=== PATIENT | female | born 1935 | race Caucasian/White ===

== ENCOUNTER 2018-12-16 08:35 | Inpatient (IN) | payer MEDICARE ==
[~2018-12-16] VITALS: Ht 165.1 cm; Wt 94.0 kg
[2018-12-16] VITALS (13 sets, daily range): BP systolic 119–152; BP diastolic 52–80; PULSE 52–77; TEMP 97.2–98.4
[2018-12-16 09:39] LABS: HEMATOCRIT 39.1 % (37.0-47.0); HEMOGLOBIN 13.2 g/dl (12.5-16.0); MEAN CELL VOLUME 87 fl (80.0-100.0); MEAN CORPUSCULAR HEMOGLOBIN 30 pg (27.0-31.0); MEAN CORPUSCULAR HGB CONC 34 g/dl (33.0-37.0); MEAN PLATELET VOLUME 10.5 fl (7.4-10.4); PLATELET COUNT 273 K/mm3 (130-400); RED BLOOD COUNT 4.48 M/mm3 (4.10-5.30); REDCELL DISTRIBUTION WIDTH-CV 13.9 % (11.5-14.5)
[2018-12-16 09:47] LABS: INR 1.1 (0.8-3.0); PROTHROMBIN TIME 12.9 SECONDS (9.7-12.8)
[2018-12-16 09:49] LABS: CALCIUM 10.1 mg/dL (8.4-10.2); CREATININE, serum 0.73 (0.52-1.25)
[2018-12-16] MEDS ORDERED: NORVASC 10MG10 MG PO (10:04)
[2018-12-16] MEDS ORDERED: PRINIVIL40 MG PO (10:05)
[2018-12-16] MEDS ORDERED: LIPITOR 10MG10 MG PO (10:05)
[2018-12-16] MEDS ORDERED: COREG12.5 MG PO (10:06)
[2018-12-16] MEDS ORDERED: K-TAB10 PO (10:07)
[2018-12-16] MEDS ORDERED: LASIX 20MG TABL20 MG PO (10:07)
[2018-12-16] MEDS ORDERED: ASPIRIN E.C. 8181 MG PO (10:08)
[2018-12-16] MEDS ORDERED: CALCIUM 600MG+D1 TAB PO (10:09)
[2018-12-16] MEDS ORDERED: CALTRATE 600 +1 TAB PO (10:10)
[2018-12-16] MEDS ORDERED: VITAMIN C500 MG PO (10:10)
[2018-12-16] MEDS ORDERED: STOOL SOFTENER100 M2 PO (10:11)
[2018-12-16] MEDS ORDERED: ELIQUIS 5MG PO (10:12)
--- NOTE | 2018-12-16 11:03 | NUR ---
ALL MEDICATIONS GIVEN VORB BY MD. SEE MERGE FOR ALL MEDICATION ADMIN TIMES. SEE MERGE FOR ALL RASS ASSESSMENTS DURING AND POST PROCEDURE.
--- NOTE | 2018-12-16 12:05 | NUR ---
Patient arrived to room at this time accompanied by rn cardiac cath nurse. Report received. Cath site assessed and dressing is clean, dry and intact. Patient offers no complaints of pain but states she is very thirst. Patient was given ice chips and satistfied with this. Lungs are clear to auscultation. Heart is regular. No edema is noted. Radial and pedal pulses are readily palpable. Abdomen is soft and non-tender, bowel sounds are active in all four quadrants. 1/2 NS is infusing through gravity tubing at 100 ml/hr to a 20g IV to the left wrist. IV site is without redness or drainage, dressing is intact. No needs identified. Call light is within reach.
[2018-12-16 12:44] LABS: MAGNESIUM 1.9 mg/dL (1.6-2.3)
[2018-12-16 13:14] LABS: THYROID STIMULATING HORMONE 1.63 uIU/mL (0.465-4.680)
--- NOTE | 2018-12-16 15:24 | NUR ---
Patient declined to take 1200 scheduled medications, stated she was afraid to take anything until she could sit up as she feels she may choke. Called Dr. Willis regarding the sotalol and he instructed to have patient take the medication at 1600 and midnight then resume regular schedule tomorrow.
--- NOTE | 2018-12-16 18:29 | NUR ---
Patient is sitting up in recliner stating she is releived to be out of bed. Did eat supper and then went on a walk with her daughter. Denies having any pain. Cath site remains clean dry and intact. Call light is within reach.
--- NOTE | 2018-12-16 20:15 | NUR ---
Assessment complete. Pt is AXO X3, states she has pain in her L leg rated at a 6/10. Breathing is even and unlabored on room air. Tele on. RW INT flushes easily, remains free of complications, and is CDI. R femoral cath site is CDI and free of complications. Pt is sitting up in the bed watching TV at this time and she denies further needs. Call light within reach, will continue to monitor.
[2018-12-17 03:45] VITALS: BP 101/65; PULSE 56; TEMP 97.7
[2018-12-17 05:54] LABS: BASO # 0.1 (0.0-0.2); BASO % 0.8 % (0.0-2.0); EOS # 0.3 (0.0-0.7); EOS % 4.3 % (0-4.0); GRAN % 51.1 % (42.2-75.2); HEMATOCRIT 37.1 % (37.0-47.0); HEMOGLOBIN 12.3 g/dl (12.5-16.0); LYMPH # 2.3 (1.2-3.4); LYMPH % 29.5 % (20.0-51.0); MEAN CELL VOLUME 89 fl (80.0-100.0); MEAN CORPUSCULAR HEMOGLOBIN 29 pg (27.0-31.0); MEAN CORPUSCULAR HGB CONC 33 g/dl (33.0-37.0); MEAN PLATELET VOLUME 10.5 fl (7.4-10.4); MONO # 1.1 (0.1-0.6); MONO % 14.2 % (1.7-9.3); PLATELET COUNT 252 K/mm3 (130-400); RED BLOOD COUNT 4.19 M/mm3 (4.10-5.30); REDCELL DISTRIBUTION WIDTH-CV 13.9 % (11.5-14.5)
[2018-12-17 06:10] LABS: ALBUMIN 3.7 gm/dL (3.5-5.0); BILIRUBIN,TOTAL 0.6 mg/dL (0.0-1.0); CALCIUM 9.7 mg/dL (8.4-10.2); CREATININE, serum 0.8 (0.52-1.25); MAGNESIUM 1.9 mg/dL (1.6-2.3); POTASSIUM 3.8 mmol/L (3.4-5.0); TOTAL PROTEIN 6.8 gm/dL (6.4-8.2)
--- NOTE | 2018-12-17 06:11 | NUR ---
Pt has been resting on and off throughout the night. She has had intermittent pain in her LLE. Pain medication administered on NOV. Pt is resting quietly in the bed at this time and she denies further needs. Call light within reach.
--- NOTE | 2018-12-17 06:50 | NUR ---
Report given to NIMA Pleitez.
[2018-12-17 07:11] VITALS: BP 120/53; PULSE 55; TEMP 98.2
--- NOTE | 2018-12-17 08:15 | NUR ---
Patient is awake and alert when entering room, stated she just ordered breakfast. States she is not having any pain. Ice water taken to patient, no other requests, call light is within reach.
[2018-12-17 10:57] VITALS: BP 125/56; PULSE 56; TEMP 97.6
--- NOTE | 2018-12-17 14:45 | NUR ---
SW met with patient to discuss discharge planning. Patient lives alone in an apartment complex that she reports they are all friends. She does not use a walker and is independent. Patients PCP is Dr Dilip Green and she obtains her medications from [facility] in [place] or mail order through script. Patients Daughter is her contact and next of kin. She does not have a DPOA and does not want to complete one. There are no anticipated discharge needs at this time.
[2018-12-17 15:39] VITALS: BP 115/55; PULSE 58; TEMP 98.4
--- NOTE | 2018-12-17 18:27 | NUR ---
Patient has had a good day, did get up and walk in halls. States she has no pain or no needs. Call light is within reach.
[2018-12-17 18:56] VITALS: BP 115/61; PULSE 65; TEMP 98.6
--- NOTE | 2018-12-17 19:21 | NUR ---
Report received from NIMA Pleitez
--- NOTE | 2018-12-17 22:39 | NUR ---
Resting in bed. Assessment complete. Lungs clear. Heart sounds normal. Bowels active x4. Pulses strong throughout. Bilateral lower leg edema +1. Denies any pain. Denies needs at this time. Call light in reach.
[2018-12-17 23:35] VITALS: BP 129/53; PULSE 54; TEMP 98.3
--- NOTE | 2018-12-18 01:17 | NUR ---
Resting in bed. Denies needs. Call light in reach.
[2018-12-18 03:20] VITALS: BP 95/46; PULSE 56; TEMP 98
[2018-12-18 03:46] VITALS: BP 118/50
[2018-12-18 05:51] LABS: BASO # 0.1 (0.0-0.2); BASO % 0.6 % (0.0-2.0); EOS # 0.3 (0.0-0.7); GRAN # 4.1 (1.4-6.5); GRAN % 48.9 % (42.2-75.2); HEMOGLOBIN 12.4 g/dl (12.5-16.0); LYMPH # 2.7 (1.2-3.4); LYMPH % 32.3 % (20.0-51.0); MEAN CELL VOLUME 87 fl (80.0-100.0); MEAN CORPUSCULAR HEMOGLOBIN 30 pg (27.0-31.0); MEAN CORPUSCULAR HGB CONC 34 g/dl (33.0-37.0); MEAN PLATELET VOLUME 10.4 fl (7.4-10.4); MONO # 1.2 (0.1-0.6); PLATELET COUNT 248 K/mm3 (130-400); REDCELL DISTRIBUTION WIDTH-CV 13.6 % (11.5-14.5)
[2018-12-18 05:59] LABS: HEMATOCRIT 36.7 % (37.0-47.0)
[2018-12-18 06:08] LABS: ALBUMIN 3.7 gm/dL (3.5-5.0); BILIRUBIN,TOTAL 0.6 mg/dL (0.0-1.0); CALCIUM 9.8 mg/dL (8.4-10.2); CREATININE, serum 0.79 (0.52-1.25); POTASSIUM 3.9 mmol/L (3.4-5.0); TOTAL PROTEIN 6.9 gm/dL (6.4-8.2)
[2018-12-18 07:15] VITALS: BP 122/58; PULSE 60; TEMP 98
--- NOTE | 2018-12-18 07:38 | NUR ---
Patient had uneventful night. Report given to Tasia HERRING. Resting in bed. Call light in reach.
--- NOTE | 2018-12-18 09:00 | NUR ---
ADMINISTERED MEDICATIONS PER EMAR. COMPLETED MORNING ASSESSMENT. PT DENIES PAIN, BREATHING EVEN AND UNLABORED. PT DENIES ANY NEEDS. CALL LIGHT IN REACH.
[2018-12-18] MEDS ORDERED: BETAPACE 80MG80 MG PO (10:01)
--- NOTE | 2018-12-18 10:44 | NUR ---
SW met with patient after being informed that she needs night o2. Patient does not feel she needs o2 and does not want it set up. She is dc home today and will follow up with her PCP and if he feels she needs it then she will look into it. no other needs identified.
--- NOTE | 2018-12-18 12:22 | NUR ---
First visit from the acid purifier. No needs right now.
--- NOTE | 2018-12-18 12:30 | NUR ---
Pt given discharge instructions, questions asked and answered. pt walked out by via [facility] staff.
== END 2018-12-18 12:30 | disposition home or self-care (01) | DRG 287 ==
LOC: COL.CAR 08:35 → MEDICAL 12:17
PROVIDERS: Nurse Practitioner; ADMIT Internal Medicine Cardiovascular Disease
PROC: B2111ZZ Fluoroscopy of Multiple Coronary Arteries using Low Osmolar Contrast (ICD-10-PCS; principal; 2018-12-16)
PROC: 4A023N8 Measurement of Cardiac Sampling and Pressure, Bilateral, Percutaneous Approach (ICD-10-PCS; 2018-12-16)
DX: I48.0 Paroxysmal atrial fibrillation (principal); I25.10 Atherosclerotic heart disease of native coronary artery without angina pectoris; I10 Essential (primary) hypertension; K76.0 Fatty (change of) liver, not elsewhere classified; E78.2 Mixed hyperlipidemia; I27.20 Pulmonary hypertension, unspecified
CPT/HCPCS: C1760; C1769; C1894; J1644; J2250; J3010; Q9967

== ENCOUNTER 2020-04-30 08:22 | Outpatient (CLI) | payer MEDICARE, OTHER ==
[~2020-04-30] VITALS: Ht 165.2 cm; Wt 91.5 kg
[~2020-04-30 08:22] MED LIST: ASPIRIN E.C. 8181 MG PO; BETAPACE 80MG80 MG PO; CALCIUM 600MG+D1 TAB PO; CALTRATE 600 +1 TAB PO; COREG12.5 MG PO; ELIQUIS 5MG PO; K-TAB10 PO; LASIX 20MG TABL20 MG PO; LIPITOR 10MG10 MG PO; NORVASC 10MG10 MG PO; PRINIVIL40 MG PO; STOOL SOFTENER100 M2 PO; VITAMIN C500 MG PO
[2020-04-30] MEDS ORDERED: BETAPACE 80MG80 MG PO (08:42)
[2020-04-30] MEDS ORDERED: LIPITOR 40MG TA40 MG PO (08:44)
[2020-04-30 09:06] VITALS: BP 122/70; PULSE 54; TEMP 98.1
[2020-04-30] MEDS ORDERED: CEPHALEXIN500 M1 PO (09:55)
[2020-04-30 10:22] VITALS: BP 132/68; PULSE 56; TEMP 98.1
--- NOTE | 2020-04-30 10:22 | NUR ---
VSS. Discharge instructions given
--- NOTE | 2020-04-30 11:00 | NUR ---
Transferred to private car by annette
== END 2020-04-30 11:00 | disposition home or self-care (01) ==
LOC: COL.CAR 08:22
DX: I47.1 Supraventricular tachycardia (principal); R00.1 Bradycardia, unspecified